=== PATIENT | male | born 1940 | race Two or more races ===

== ENCOUNTER 2021-12-20 14:52 | Outpatient (CLI) | payer OTHER | END 2021-12-20 14:55 | disposition home or self-care (01) | LOC: RAD 14:52 | PROVIDERS: ATTEND Internal Medicine Cardiovascular Disease | DX: M12.9 Arthropathy, unspecified (principal); M46.48 Discitis, unspecified, sacral and sacrococcygeal region ==

== ENCOUNTER 2022-11-14 08:27 | Outpatient (CLI) | payer OTHER | END 2022-11-14 08:35 | disposition home or self-care (01) | LOC: SONOGRAMA 08:27 | PROVIDERS: ATTEND Internal Medicine Cardiovascular Disease | DX: N18.9 Chronic kidney disease, unspecified (principal) ==

== ENCOUNTER 2024-03-27 09:06 | Outpatient (CLI) | payer OTHER | END 2024-03-27 09:11 | disposition home or self-care (01) | LOC: RAD 09:06 | PROVIDERS: ATTEND Ophthalmology | DX: Z01.811 Encounter for preprocedural respiratory examination (principal) ==